=== PATIENT | male | born 1970 | race Hispanic/Latino ===

== ENCOUNTER 2017-03-29 08:35 | Day surgery (SDC) | payer OTHER ==
[2017-03-29] VITALS (10 sets, daily range): BP systolic 119–145; BP diastolic 63–81; PULSE 56–81; RESP 12–18; O2SAT 93–99
[~2017-03-29] VITALS: Ht 162.6 cm; Wt 86.2 kg
--- NOTE | 2017-03-29 07:45 | PCM.HPANE ---
Patient Data Surgeon Admitting Provider: Attending Provider:Darrell Pineda MD Primary Care Physician:Pat Langley MD Other Provider:[facility] Reason for Visit Left Knee Acl Tear Ht/WT & BMI Height (Feet): 5 Height (Inches): 4 Weight (Kilograms): 86.18 Body Mass Index 32.00 Allergies Coded Allergies: atenolol (Verified Adverse Reaction, Severe, FATIGUE, 03/23/17) lisinopril (Verified Adverse Reaction, Severe, COUGH, 03/23/17) Past Anesthesia History Anesthesia History: Denies:: Fam Anesthesia Reaction, Fam Malignant Hypertherm Diabetes History Hx Diabetes?: No MRSA MRSA: No Medications Hypertension Medication: Yes (LOSARTAN,HCTZ) Reported Medications Hydrochlorothiazide 12.5 Mg Tffbiba77.5 Mg PO DAILY 30 Days Ref 0 03/23/17 Naproxen (Naprosyn)500 Mg [id number] Mg PO BID PRN For Pain Ref 0 03/23/17 Losartan Potassium 100 Mg [id number] Mg PO DAILY 03/23/17 History History of ENT Problems?: No HEENT History: Denies:: Abnormal Airway Cataracts Difficult Intubation Dysphagia Glaucoma Hearing Problem Sinus Problem TMJ Denture Type: None Teeth Condition: Within Normal Limits Hx of Heart Problems?: Yes Cardiovascular History: Positive for:: Atrial Fibrillation (BOUT OF A FIB/ FLUTTER W/ RVR 02/2014 REQUIRING CARDIOVERSION (SYNCOPE/LOC)) Hypertension (HYPERLIPIDEMIA) Irregular Heartbeat (02/2014 A FIB/FLUTTER--CARDIOVERTED ?R/T ETOH CONSUMPTION?) Denies:: Congestive Heart Failure Heart Murmur Hx of Respiratory Problem?: Yes Respiratory History: Denies:: Tuberculosis Use of C-PAP Machine (SNORES) Hx Neurologic Problems?: Yes Hx of GI Problems?: No Hx of Problems?: No Male Hx: Denies:: Prostate Problems Scrotal Mass Testicular Surgery Skin History: Denies:: History Skin Disorders? Pressure Ulcers Hx Musculoskeletal Problems?: Yes Musculoskeletal History: Positive for:: Musculoskeletal Trauma (LT KNEE ACL TEAR/MENISCAL TEAR=CURRENT PROBLEM) Osteoarthritis Hx of Psycho/Social Problems?: No Hx Surgeries?: No Hx Any Other Health Problems?: No Other History: Denies:: Cancer Endocrine Disease Hospitalization Thyroid Disease History Blood Transfusions: Denies:: Blood Transfusions Hx Diabetes: No Hx Alcohol Use: YesHx Substance Use: NoHave You Smoked inLast 12 mo: No Stop/Bang S-Snoring: Do You Snore Loudly: Yes T-Tired: feel tired, fatigued: Yes O-Obsered: Observed not breath: No P-Blood Pressure: treated: Yes B- Body Mass Index > 35 kg/m2: No A- Age over 50: No N- Neck Large Circumference: No G- Gender Male: Yes MARYANNE Total Score: 4 MARYANNE Risk Assessment: High Risk, =/>3 Yes MARYANNE Category 2: Yes Risk Assessment Category Category 1A: Patient has history of documented sleep apnea, and HAS NOT received any narcotic, sedative or anesthesia administration during this stay. Category 1B: Patient has history of documented sleep apnea, and HAS received any narcotic , sedative or anesthesia administration during this stay Category 2: Patient has SUSPECTED Obstructive Sleep Apnea, and HAS received any narcotic , sedative or anesthesia administration during this stay. Category 3: Patient has SUSPECTED Obstructive Sleep Apnea and HAS NOT received narcotic, sedative or anesthesia administration during this stay. Category 4: Outpatient in Procedural Areas with known sleep apnea or who screen positive for High Risk via the STOP/BANG questionnaire. Exam Exam General Appearance: Alert, Oriented X3, Cooperative, No Acute Distress HEENT/AIRWAY: MP 2 Lungs: Clear to Auscultation, Normal Air Movement Heart: Exam Unremarkable, Regular Rate/Rhythm, No Murmurs/Rubs/Gallops Plan Impression Patient chart reviewed, patient interviewed and anesthestic plan with risks, benefits, and alternatives discussed, and informed consent obtained. NPO per Anesth. Guidelines: Yes ASA Physical Status: ASA2 Mod Systemic Disease Anesthetic Plan: GA, Regional Block Bene/Risks/Altern/Consents: Yes HP Complete Prior to Induction: Yes Danyelle Lam MD March 29, 2017 07:45
[~2017-03-29 08:35] MED LIST: CeFAZolin Inj 2 GM in IV Premix 1 EACH IV ONE; HYDR12.5 PO; LOSA100T29 PO; Lactated Ringer's 1,000 ML IV SCH; NAPR500T PO
[2017-03-29] MEDS ORDERED: Ondansetron 2 mg/mL 2 mL Inj ONE (08:36)
[2017-03-29] MEDS ORDERED: HYDROmorphone 2 mg/mL Inj ONE (08:36)
[2017-03-29] MEDS ORDERED: fentaNYL-PF 50 mCg/mL 2 mL Inj ONE (08:36)
[2017-03-29] MEDS ORDERED: Dexamethasone 4 mg/mL Inj ONE (08:36)
[2017-03-29] MEDS ORDERED: Succinylcholine Chloride 20 mg/mL 5 mL Inj ONE (08:36)
[2017-03-29] MEDS ORDERED: Propofol 10,000 mCg/mL 20 mL Inj ONE (08:36)
[2017-03-29] MEDS ORDERED: CeFAZolin Inj 2 gm / 50mL D5W IV ONE (08:41)
[2017-03-29] MEDS ORDERED: Lactated Ringer's 1,000 ML IV ONE (09:24)
[2017-03-29] MEDS ORDERED: Lactated Ringer's 500 ML IV PRN (11:13)
[2017-03-29] MEDS ORDERED: Dexamethasone 4 mg/mL Inj IVPUSH PRN (11:15)
[2017-03-29] MEDS ORDERED: Atropine 0.4 mg/mL Inj IVPUSH PRN (11:15)
[2017-03-29] MEDS ORDERED: EPHEDrine Sulfate 50 mg/mL Inj IVPUSH PRN (11:15)
[2017-03-29] MEDS ORDERED: HYDROmorphone 1 mg/mL Inj IVPUSH PRN (11:15)
[2017-03-29] MEDS ORDERED: Labetalol 5 mg/mL 4 mL Inj IV PRN (11:15)
[2017-03-29] MEDS ORDERED: MetoCLOpramide 5 mg/mL 2 mL Inj IVPUSH PRN (11:15)
[2017-03-29] MEDS ORDERED: Phenylephrine 10,000 mCg/mL Inj IVPUSH PRN (11:15)
[2017-03-29] MEDS ORDERED: fentaNYL-PF 50 mCg/mL 2 mL Inj IVPUSH PRN (11:15)
[2017-03-29] MEDS ORDERED: Ondansetron 2 mg/mL 2 mL Inj IVPUSH PRN (11:15)
[2017-03-29] MEDS ORDERED: Ropivacaine-PF 0.5% 30 mL Inj INFILTRATE ONE (11:17)
[2017-03-29] MEDS ORDERED: Bacitracin 50,000 unit Inj IRRIGATION ONE (11:17)
[2017-03-29] MEDS ORDERED: Ketorolac 15 mg/mL Inj IVPUSH ONE (12:45)
[2017-03-29] MEDS ORDERED: HYDROcodone-APAP 5-325 mg Tablet PO PRN (12:45)
[2017-03-29] MEDS: Lactated Ringer's 1,000 ML IV SCH ×2 (12:57→15:53)
--- NOTE | 2017-03-29 12:59 | PCM.ORTHOP ---
Orthopedic Operative Report Date of Service: March 29, 2017 Pre Operative Diagnosis Left knee anterior cruciate ligament tear, medial meniscus tear, lateral meniscus tear, LCL tear, arcuate ligament injury Post Operative Diagnosis same Procedure Left knee arthroscopy, anterior cruciate ligament reconstruction, lateral meniscus repair, partial medial meniscectomy, partial synovectomy, lateral collateral ligament repair Surgeon Surgeon: Darrell Pineda MD Assistants: Terrance Broedrick Indication for Procedure Left knee anterior cruciate ligament tear Findings Per dictation Details of Procedure INVESTMENT CONSULTANT SURGEON: During the operation, the services of a physician surgical rn were medically indicated and necessary to provide exposure of the operative site for the surgical procedure and to maintain the limb in a proper position to carry out the operation safely and efficiently. Without the qualified vector control assistant being present, it would have extended the operative procedure and made the procedure technically more difficult to perform. INDICATIONS: The patient is Julio C Rojas is a 46-year-old male patient with a prolonged history of left knee giving way after a traumatic incident in The patient has had continued episodes of instability. The patient has restored their range of motion and is now brought to the operating room for ACL reconstruction, possible partial medial and lateral meniscectomy versus medial and lateral meniscal repair, chondroplasty and debridement, LCL repair versus reconstruction. The risks, benefits, and alternatives of surgery were discussed with the patient. The risks included but were not limited to infection, bleeding, damage to vessels and nerves, loss of motion, continued pain, re-tear of the meniscus, deep venous thrombosis, and complications due to anesthesia including nerve injury, myocardial infarction, stroke, , etc. The patient stated understanding of the nature of the surgical procedure and gave written and verbal consent to proceed. PROCEDURE: The patient was brought to the operating room and placed supine on the operating room table. General anesthesia was induced and a fascia iliacus block was placed. The left lower extremity was examined under anesthesia. Range of motion was 0 degrees of hyperextension to 135 degrees of flexion. There was 1-2+ varus and no valgus or posterolateral instability assessed. The patient had no instability valgus stress at 0 or 30 degrees, with no instability with varus at 0 deg but 1-2+ at 20 deg of rlexion. The patient had a 2+ Pranay and drawer with a positive pivot shift. The left lower extremity was then prepped and draped in the usual fashion. A tourniquet was placed proximally on the thigh over a bias stockinette. A standard anterolateral parapatellar stab wound was created. The knee joint was entered with a blunt-tipped obturator, followed by the 30-degree video arthroscope. An anteromedial portal was established under arthroscopic control. A routine arthroscopic survey was performed. The suprapatellar pouch was unremarkable. The undersurface of the patella was well-preserved. The patella appeared to track centrally within the trochlear groove. The medial and lateral gutters were inspected and there was no loose body seen. There was no hypertrophied plica. The popliteal hiatus was entered and was unremarkable. The lateral compartment was entered. The articular surfaces of the lateral femoral condyle was largely well maintained. There was no chondromalacia adjacent to the notch. There was no chondromalacia along the central aspect of the weight bearing lateral tibial plateau. The lateral meniscus revealed a red white junction posterior horn horizontal meniscus tear. One [employer] FasT-Fix anchor was used to repair the lateral meniscus. The intercondylar notch was visualized. The anterior cruciate ligament was torn from it's femoral origin. There was an empty lateral wall. Posteromedially there was no loose body seen. The posterior cruciate ligament was visualized and appeared intact. The medial compartment was entered. The articular surfaces of the medial femoral condyle and medial tibial plateau were visualized. There was grade 1/2 chondromalacia noted on the medial femoral condyle, and no chondromalacia noted on the medial tibial plateau. The medial meniscus was visualized and appeared intact and was stable to probing. A small posterior horn medial meniscus fraying was noted and a shaver was used to resect a small frayed portion of the posterior horn. Attention was turned to reconstruction of the anterior cruciate ligament. Following exsanguination with an Esmarch bandage the tourniquet was inflated to 250 mm of mercury. Using a motorized shaver a notchplasty was performed, exposing the lateral wall and roof of the notch, identifying the rudo-aqu-vem position. The stump of the anterior cruciate ligament was debrided. An Arthrex guide was placed intra-articularly between the tibial spines in line with the anterior horn of the lateral meniscus. A Kuldip wire was then inserted into the knee through a 2 cm incision made over the proximal medial tibia. The incision was deepened through the subcutaneous tissue with subperiosteal dissection achieved. Bleeding points were coagulated with the Bovie electrocautery. A fresh frozen tibialis allograft was opened and prepared at the back table, accommodating a 10 mm graft on the femoral side and 10 mm graft on the tibial side. Tibial drilling was then carried out first with a 5 mm followed by a 10 mm cylindrical reamer with the guide set at 55 degrees. The Beath pin was drilled out the femoral cortex and skin. The femoral tunnel was then created,with an Arthrex flipcutter. Depth-gauging confirmed a tunnel length of 45 mm. An Arthrex EndoButton was selected. The graft was inserted intra-articularly and the EndoButton was deployed. The graft was cycled for 17 cycles with 25 pounds of force to pre-load the graft. Tibial fixation was carried out using a 8-10 PEEK Intra-Fix in 10 degrees of flexion with a posterior drawer. At the completion of surgery the patient had a firm stable Pranay. The patient had a 0 firm Pranay and a negative pivot shift. There was no evidence for any roof or lateral wall impingement. The tourniquet was deflated at [default value] minutes. The knee was irrigated with two liters of lactated Ringer's solution. Excess fluid was drained. Moderate synovitis was noted anteriorly in the medial and lateral compartment and debrided with a shaver. Next the lateral approach to the knee was explored using a 5 cm longitudinal incision using the interval between iliotibial band and biceps femoris, the fascia between ITB and biceps was incised to expose the LCL insertion on the fibular head. Next a plane was developed using a second interval proximally within ITB to identify the lateral femoral epicondyle. The midsubstance and origin appeared to be intact. There appeared to be enough excursion to perform a repair rather than a reconstruction and the allograft was returned to the freezer. A 5.5 biocomposite anchor that was triple loaded was inserted into the anterior aspect of the fibular head and the LCL was oversewed tightly. The fibular nerve was noted posteriorly and protected. The popliteus tendon as well as popliteofibular ligament, arcuate ligament, fabellofibular ligament, biceps femoris insertion on the posterior aspect of the fibula posterior to LCL , and the surrounding structures appeared to be intact. The tibial and femoral wounds were then copiously irrigated with bacitracin solution and closed in layers with #0, #2-0 and #3-0 Vicryl. The skin was reapproximated with #4-0 Monocryl. The knee was injected with 20 cc of 0.5% plain ropivacaine and 4 mg of Duramorph. A dry sterile dressing was applied, followed by a bulky bandage and JUAN stocking. A postoperative TROM brace was applied locked in full extension. The patient was awakened in the Operating Room and transported to the Recovery Room in satisfactory condition. The patient appeared to tolerate the procedure well. At the completion of surgery the patient had soft compartments, palpable pulses, and brisk capillary refill. There were no complications noted. Please keep dressing clean dry and intact. Do not remove dressing until follow- up in clinic. If the dressing become soaked, you may remove the outer gauze and placed Band-Aids on the wounds. You may weight-bear as tolerated with the brace on at all times. Do Not Bend Your Knee. You may place a pillow under your heel and NOT your knee. You will follow up in clinic in 10-14 days for suture removal, and placement of new Steri-Strips. You will follow-up with me in clinic, and we will start physical therapy. You will follow-up with me every 6 weeks while you progress in your rehab and will be released once cleared by PT around 9-12 months. Please see me prior to full release. Please keep the affected extremity elevated when possible. You will take antibiotics 4 times daily for 3 days. Please take aspirin 81 mg qdaily X 2 weeks. You may use ice and/or heat as needed for comfort. (preferably ice during the first 48-72 hours) Please feel free to call with any further questions, comments, and/or concerns. Grafts, Implants: Implants-See Implant Record Complications There were no periprocedural complications identified. Condition Stable Anesthetic Administered: GA Catheters: None Output, Estimated Blood Loss: 5 Blood Admin during surgery: No Surgical Cast or Splint: Other Surgical Specimen Removed: No Specimen sent to Pathology: No copies to: Darrell Pineda MD, Christopher L MD March 29, 2017 12:59
--- NOTE | 2017-03-29 13:33 | PCM.ANEP1 ---
Post Anesthesia PACU Phase 1 Assessment Vital Signs Vital Signs Date Time Temp Pulse Resp B/P Pulse Ox O2 Delivery O2 Flow Rate FiO2 03/29/17 13:15 78 17 119/77 93 Nasal Cannula 4 03/29/17 13:00 81 18 128/66 95 Simple Mask 10 03/29/17 12:55 80 17 127/63 97 Simple Mask 10 03/29/17 12:50 81 17 123/63 99 Simple Mask 10 03/29/17 12:45 36.4 80 16 145/81 98 Simple Mask 10 03/29/17 09:26 36.3 56 16 133/77 99 Room Air Anesthetic Administered: GA Level of Alertness: Awake, talking ARTHUR's with Equal Strength: Yes Pain: No Nausea or Vomiting: No CV Function & Hydration Stable: No Airway Device: Oxygen Delivery: Simple Mask Lungs: Clear to Auscultation, Normal Air Movement PACU Phase 2 Assessment Complications: No Follow up Care: No Patient Instructions Provided: N/A Danyelle Lam MD March 29, 2017 13:33
== END 2017-03-29 23:59 | disposition home or self-care (01) ==
LOC: SAS 08:35
PROVIDERS: ATTEND Orthopaedic Surgery
DX: S83.512A Sprain of anterior cruciate ligament of left knee, initial encounter (principal); S83.242A Other tear of medial meniscus, current injury, left knee, initial encounter; S83.282A Other tear of lateral meniscus, current injury, left knee, initial encounter; S83.422A Sprain of lateral collateral ligament of left knee, initial encounter; V87.8XXA Person injured in other specified noncollision transport accidents involving motor vehicle (traffic), initial encounter; Y93.I9 Activity, other involving external motion; Y92.9 Unspecified place or not applicable; M17.12 Unilateral primary osteoarthritis, left knee; M25.562 Pain in left knee; I10 Essential (primary) hypertension; E78.5 Hyperlipidemia, unspecified; E66.9 Obesity, unspecified; Z68.33 Body mass index [BMI] 33.0-33.9, adult
CPT/HCPCS: 27405; 29880; 29888; 76942; C1713; C1762; J0330; J0690; J1100; J1170; J1885; J2250; J2270; J2405; J2795; J3010; J7120